=== PATIENT | male | born 2000 | race African-American/Black ===

== ENCOUNTER 2019-08-02 12:09 | Emergency (ER) | payer SELFPAY ==
[~2019-08-02] VITALS: Ht 182.9 cm; Wt 72.7 kg
[2019-08-02 12:15] VITALS: BP 133/61
--- NOTE | 2019-08-02 13:24 | PHYS DOC ---
Past Medical History Past Medical History: Asthma Past Surgical History: No Surgical History Smoking Status: Never Smoker Alcohol Use: None General Adult EDM: Chief Complaint: SHORTNESS OF BREATH HPI: HPI: Patient is a 19 year old male with history of childhood asthma who presents to the ED today complaining of shortness of breath for 1 week. Patient reports he was seen at [facility] 3 days ago for the same complaints, he states he had a negative chest x-ray, he states he was concerned about coronavirus but they informed him he does not meet criteria for younger testing and sent him home. He denies any exposure to patients with coronavirus. Denies any fever or coughing. He states he was seen at [facility] today, they told him he does not meet criteria for COVID testing sent him home and he decided to come to the ED. Review of Systems: Review of Systems: Constitutional: Denies fever or chills. [] Eyes: Denies change in visual acuity. [] HENT: Denies nasal congestion or sore throat. [] Respiratory: Reports shortness of breath, denies coughing Cardiovascular: Denies chest pain or edema. [] GI: Denies abdominal pain, nausea, vomiting, bloody stools or diarrhea. [] : Denies dysuria. [] Musculoskeletal: Denies back pain or joint pain. [] Integument: Denies rash. [] Neurologic: Denies headache, focal weakness or sensory changes. [] Lymphatic: Denies swollen glands. [] Psychiatric: Denies depression or anxiety. [] Heart Score: Risk Factors: Risk Factors: DM, Current or recent (<one month) smoker, HTN, HLP, family history of CAD, obesity. Risk Scores: Score 0 - 3: 2.5% MACE over next 6 weeks - Discharge Home Score 4 - 6: 20.3% MACE over next 6 weeks - Admit for Clinical Observation Score 7 - 10: 72.7% MACE over next 6 weeks - Early Invasive Strategies Physical Exam: PE: Constitutional: Well developed, well nourished, no acute distress, non-toxic appearance. [] HENT: Normocephalic, atraumatic, bilateral external ears normal, oropharynx moist, no oral exudates, nose normal. [] Eyes: PERRLA, EOMI, conjunctiva normal, no discharge. [] Neck: Normal range of motion, no tenderness, supple, no stridor. [] Cardiovascular:Heart rate regular rhythm, no murmur [] Lungs & Thorax: Bilateral breath sounds clear to auscultation [] Abdomen: Bowel sounds normal, soft, no tenderness, no masses, no pulsatile masses. [] Skin: Warm, dry, no erythema, no rash. [] Back: No tenderness, no CVA tenderness. [] Extremities: No tenderness, no cyanosis, no clubbing, ROM intact, no edema. [] Neurologic: Alert and oriented X 3, normal motor function, normal sensory function, no focal deficits noted. [] Psychologic: Affect normal, judgement normal, mood normal. [] Current Patient Data: Vital Signs: Vital Signs Date Time Temp Pulse Resp B/P (MAP) Pulse Ox O2 Delivery O2 Flow Rate FiO2 08/02/19 12:15 98.6 84 18 133/61 (85) 98 Room Air 98.6 EKG: EKG: [] Radiology/Procedures: Radiology/Procedures: [] Course & Med Decision Making: Course & Med Decision Making Pertinent Labs and Imaging studies reviewed. (See chart for details) This is a well-appearing 19-year-old male patient presenting to the ED today complaining of shortness of breath for 1 week. Patient was seen at [facility] 3 days ago, had a negative chest x-ray, was concerned about coronavirus, he states he did not meet criteria for testing and was discharged to home with an inhaler. He was seen at [facility] couple minutes prior to coming to the ED, he was informed he does not meet criteria for coronary testing and was sent home. He decided to come to the ED. Patient has no exposure to COVID 19 patient, no fever, no coughing. Patient arrives in the ED with O2 sats at 100% on room air, heart rate in the 80s, temperature 98.6. Blood pressure 133/81. Patient is in no distress, was discharged to home. Recommended if he desires to have COVID19 testing as an outpatient he can follow-up with the health department otherwise he does not meet ED criteria for COVID 19 testing. Dragon Disclaimer: Dragon Disclaimer: This electronic medical record was generated, in whole or in part, using a voice recognition dictation system. COVID-19 Patient Risks: Age 65 or older: No Sign of co-morbidity: Yes Exp to person + for COVID: No Exp to PUI: No Travel from affected area: No Lower respiratory symptoms: No Fever: No Other: No PPE Use: Full PPE with N95 mask or PAPR: Yes Departure Departure Impression: Primary Impression: Shortness of breath Disposition: 01 HOME/RESIDENCE PRIOR TO ADM Condition: STABLE Referrals: UNKNOWN PCP NAME (PCP) Patient Instructions: Shortness of Breath Additional Instructions: Please get your inhaler that [facility] prescribed and start using Please continue with your quarantine Please follow up with your doctor in 1 week Please come back to the Ed if symptoms worsen FOX BARNETT APRN Aug 02, 2019 13:24
== END 2019-08-02 12:38 | disposition home or self-care (01) ==
LOC: ER 12:09
DX: R06.02 Shortness of breath (principal); J45.909 Unspecified asthma, uncomplicated
CPT/HCPCS: 99283